=== PATIENT | male | born 1935 | race Caucasian/White ===

== ENCOUNTER 2017-07-30 12:24 | Outpatient (CLI) | payer MEDICARE, BC ==
--- NOTE | 2017-07-30 13:45 | RAD ---
TWO VIEW CHEST: Indication: Left chest pain, rib pain. FINDINGS: No evidence of a displaced left rib fracture. Cardiac silhouette is at upper limits of normal. No sig nificant vascular congestion or pleural effusion. There is prominent degenerative change of the imaged spine. IMPRESSION: 1. No displaced left rib fracture or discrete pneumothorax. POS: CET
== END 2017-07-30 12:25 | disposition home or self-care (01) ==
LOC: SCSRAD 12:24
PROVIDERS: ATTEND Physician Assistant
DX: R07.81 Pleurodynia (principal)
CPT/HCPCS: 71020

== ENCOUNTER 2017-11-11 12:59 | Outpatient (CLI) | payer MEDICARE, BC ==
--- NOTE | 2017-11-12 12:13 | PFT ---
PATIENT HISTORY: HEIGHT: 72IN WEIGHT:202 SMOKER: NO HOW LON YRS AGO PACKS PER DAY CIGARS PRODUCTIVE COUGH: LUNG DISEASE: PHYSICIAN INTERPRETATION FINAL REPORT: The FEV1 is 2.56 liters which 96% predicted, FVC 3.26 liters which 75% predicted. The FEV1/FVC ratio was increased. There is no improvement in FEV1 after bronchodilatation. The total lung capacity is 5.5 liters which is 81%. Residual volume is normal. DLCO could not be performed because of problems with the patient's performing the test. IMPRESSION: The spirometry is essentially normal. The lung capacities are trending towards mild restriction. Gas exchange could not be assessed on this study. Software Engineering Analyst: Rod Filler: MARK MCCOLLUM
== END 2017-11-11 13:00 | disposition home or self-care (01) ==
LOC: CP 12:59
PROVIDERS: ATTEND Internal Medicine
DX: R06.09 Other forms of dyspnea (principal)
CPT/HCPCS: 94060; 94727

== ENCOUNTER 2017-11-20 16:00 | Outpatient (CLI) | payer MEDICARE, BC | END 2017-11-20 16:01 | disposition home or self-care (01) | LOC: SLEEPLAB 16:00 | PROVIDERS: ATTEND Internal Medicine | DX: G47.33 Obstructive sleep apnea (adult) (pediatric) (principal); R53.83 Other fatigue; R06.83 Snoring; R35.1 Nocturia; G31.84 Mild cognitive impairment of uncertain or unknown etiology; I48.91 Unspecified atrial fibrillation; I11.0 Hypertensive heart disease with heart failure; I50.32 Chronic diastolic (congestive) heart failure | CPT/HCPCS: 95806 ==

== ENCOUNTER 2017-12-09 15:35 | Outpatient (CLI) | payer MEDICARE, BC ==
--- NOTE | 2017-12-09 16:41 | RAD ---
TWO VIEWS LUMBAR SPINE 12/09/17 HISTORY: Restless leg syndrome. Patient complains of right leg and calf pain for the past few months. FINDINGS: There are five nonribbearing lumbar type vertebral bodies. Multilevel osteophytes are present. Verteb ral body heights and intervertebral disc spaces are within normal limits. Mild facet degenerative radha nges seen in the lower lumbar spine. There is no fracture or subluxation. Vascular calcifications see n in the abdominal aorta. Surgical clips overlie the right upper quadrant. There is mild bilateral hi p osteoarthritis. IMPRESSION: Degenerative changes in the lumbar spine, but no fracture or subluxation is seen. POS: ELIEZER
== END 2017-12-09 15:36 | disposition home or self-care (01) ==
LOC: SCSRAD 15:35
PROVIDERS: ATTEND Psychiatry & Neurology Neurology
DX: G25.81 Restless legs syndrome (principal); M47.896 Other spondylosis, lumbar region
CPT/HCPCS: 72100

== ENCOUNTER 2017-12-17 20:30 | Outpatient (CLI) | payer MEDICARE, BC | END 2017-12-17 20:31 | disposition home or self-care (01) | LOC: SLEEPLAB 20:30 | PROVIDERS: ATTEND Internal Medicine | DX: G47.33 Obstructive sleep apnea (adult) (pediatric) (principal); R06.83 Snoring; R35.1 Nocturia | CPT/HCPCS: 95811 ==

== ENCOUNTER 2018-01-23 09:48 | Day surgery (SDC) | payer MEDICARE, BC ==
[2018-01-23 13:43] LABS: Calcium 8.5 mg/dL (7.8-10.44); Chloride 108 mmol/L (98-107); Potassium 4.1 mmol/L (3.5-5.1); Sodium 138 mmol/L (136-145)
[2018-01-23 13:44] LABS: Glucose 114 mg/dL (83-110)
[2018-01-23 13:45] LABS: Anion Gap 14 mmol/L (10-20); Carbon Dioxide 20 mmol/L (23-31)
[2018-01-23 13:47] LABS: Calc. Creatinine Clearance 0 mL/min (70-130); Estimated GFR-MDRD 79
[2018-01-23 13:48] LABS: BUN (Urea Nitrogen) 19 mg/dL (8.4-25.7)
--- NOTE | 2018-01-23 14:30 | ECHO ---
TRANSESOPHAGEAL ECHOCARDIOGRAM: DATE OF PROCEDURE: 01/23/18 INDICATION: This is an 82-year-old gentleman with paroxysmal atrial fibrillation. DESCRIPTION OF PROCEDURE: The patient was taken to the PACU. The patient was sedated by anesthesiology. A transesophageal probe was placed in the distal esophagus and stomach. Echocardiographic images were obtained. The transesophageal probe was removed. FINDINGS: 1. Normal left ventricular systolic function. 2. Biatrial enlargement. 3. Moderate mitral regurgitation. 4. Mild tricuspid regurgitation. 5. No thrombus is noted in the left atrium or left atrial appendage. 6. Atherosclerotic debris in the descending aorta. IMPRESSION: No formed thrombus in the left atrium or left atrial appendage.
--- NOTE | 2018-01-23 14:37 | OP ---
CARDIOLOGY PROCEDURE NOTE: Date: 01/23/18 PROCEDURE: Electrical cardioversion. DETAILS: The patient remained sedated after transesophageal echo revealed no evidence of intracardiac thrombus . With 200 joules of synchronized cardioversion, he returned to sinus rhythm and tolerated the proced ure well.
--- NOTE | 2018-01-23 15:56 | HP ---
HISTORY OF PRESENT ILLNESS: This is a pleasant 82-year-old white male with history of atrial arrhyth mias. He underwent pulmonary venous isolation ablation in 2011 and has been in normal sinus rhythm s mao that time until 01/13/2018. He felt rapid heartbeat went to the emergency room at [facility] and was found to be in atrial flutter. He was placed on Eliquis 5 b.i.d. and metop rolol was increased from 50 to 75 mg q.a.m. He was seen by Electrophysiology and felt that he should undergo MATT followed by electrical cardioversion. PHYSICAL EXAMINATION: VITAL SIGNS: Blood pressure 128/70, pulse of 80. HEENT: PERRL. CHEST: Clear. CARDIAC: S1 and S2 normal, without any S3 or S4, without murmurs. ABDOMEN: Normal bowel sounds. EXTREMITIES: Revealed trace pretibial edema. NEUROLOGIC: Grossly intact. IMPRESSION: Recurrence of atrial flutter, atypical. RECOMMENDATIONS: The patient will undergo electrical cardioversion. Risks of MATT and electrical car dioversion were discussed including , worse heart rhythm, asystole, teeth or esophageal damage, stroke, embolic event, etc. He understands and agrees to proceed.
== END 2018-01-23 14:43 | disposition home or self-care (01) ==
LOC: CCL 09:48
PROVIDERS: ATTEND Internal Medicine Cardiovascular Disease
DX: I48.4 Atypical atrial flutter (principal)
CPT/HCPCS: 36415; 80048; 92960; 93005; 93010; 93312

== ENCOUNTER 2020-02-04 06:30 | Outpatient (CLI) | payer MEDICARE, BC, OTHER ==
[2020-02-04 10:18] LABS: Hemoglobin 13.4 g/dL (14.0-18.0); Mean Corpuscular HGB CONC 34.2 g/dL (32.0-36.0); Mean Corpuscular Hemoglobin 31.2 pg (27.0-31.0); Mean Corpuscular Volume 91.4 fL (78.0-98.0); Mean Platelet Volume 8.7 fL (7.4-10.4); Platelet Count 131 thou/uL (130-400); RBC Distribution Width 13.1 % (11.5-14.5); Red Blood Cell (RBC) Count 4.31 mill/uL (4.70-6.10)
[2020-02-04 11:16] LABS: Bacteria/HPF None Seen HPF (None Seen); Bilirubin Negative (Negative); Blood, Urine Negative (Negative); Clarity Turbid (Clear); Glucose, Urine (Dipstick) 50 mg/dL (Negative); Leukocyte Negative Leu/uL (Negative); Nitrite Negative (Negative); Protein, Urine (Dipstick) Negative (Neg-Trace); RBC/HPF 0-3 HPF (0-3); Squamous Epithelial 0-3 HPF (0-3); Urobilinogen Normal mg/dL (Less than 2)
[2020-02-04 11:36] LABS: Anion Gap 11 mmol/L (10-20); BUN (Urea Nitrogen) 27 mg/dL (8.4-25.7); Calc. Creatinine Clearance 0 mL/min (70-130); Carbon Dioxide 28 mmol/L (23-31); Chloride 103 mmol/L (98-107); Estimated GFR-MDRD 55; Glucose 233 mg/dL (83-110); Sodium 138 mmol/L (136-145)
[2020-02-05 12:15] LABS: SARS-CoV-2 MS2 Positive; SARS-CoV-2 N Gene Negative; SARS-CoV-2 S Gene Negative; SARS-CoV-2 orf1ab Negative
--- NOTE | 2020-02-07 17:25 | EKG ---
Test Reason : Blood Pressure : / mmHG Vent. Rate : 080 BPM Atrial Rate : 080 BPM P-R Int : 162 ms QRS Dur : 082 ms QT Int : 394 ms P-R-T Axes : 052 -03 110 degrees QTc Int : 454 ms Normal sinus rhythm Nonspecific ST and T wave abnormality Abnormal ECG Confirmed by JACOB BENSON ([id number]) on 02/07/2020 5:25:47 PM Referred By: TRINITY Confirmed By:JACOB BENSON
== END 2020-02-04 06:31 | disposition home or self-care (01) ==
LOC: LABBT 06:30
PROVIDERS: ATTEND Urology
DX: Z01.818 Encounter for other preprocedural examination (principal); Z11.59 Encounter for screening for other viral diseases; N40.1 Benign prostatic hyperplasia with lower urinary tract symptoms
CPT/HCPCS: 80048; 81001; 85027; U0003; 87635; 93005; 93010

== ENCOUNTER 2020-02-08 08:48 | Observation (INO) | payer MEDICARE, BC ==
[2020-02-03 11:13] VITALS: BMI 25.7
[2020-02-08] MEDS ORDERED: Fentanyl 100 MCG/2 ML VIAL ONE (08:53)
[2020-02-08] MEDS ORDERED: Midazolam HCl 2 mg/2 ml Vial ONE (08:53)
[2020-02-08] MEDS ORDERED: Levofloxacin 500 mg/D5W 100 ml Premix Bag ONE (09:20)
[2020-02-08] MEDS ORDERED: Ondansetron PF 4 MG/2 ML Vial ONE (11:15)
[2020-02-08] MEDS ORDERED: PROPOFOL 200 MG/20 ML VIAL ONE (11:15)
[2020-02-08] MEDS ORDERED: Rocuronium Bromide 10 MG/ML (10ML VIAL) ONE (11:15)
[2020-02-08] MEDS ORDERED: EPHEDRINE 25 MG/5 ML SYRINGE ONE (11:15)
[2020-02-08] MEDS ORDERED: Lidocaine 1% PF 5 ML VIAL ONE (11:15)
[2020-02-08] MEDS ORDERED: Ondansetron HCl/PF 4 MG/2 ML Vial IVP PRN (11:41)
[2020-02-08] MEDS ORDERED: Promethazine HCl 25 MG/ML VIAL IM PRN (11:41)
[2020-02-08] MEDS ORDERED: Promethazine HCl 25 MG/ML VIAL SLOW IVP PRN (11:41)
[2020-02-08] MEDS ORDERED: hydrALAZINE 20 MG/ML VIAL SLOW IVP PRN (13:05)
[2020-02-08] MEDS ORDERED: Ketorolac Tromethamine 30 MG/ML VIAL IVP PRN (13:05)
[2020-02-08] MEDS ORDERED: HYDROcodone/Acetaminophen 5/325 mg Tablet PO PRN (13:05)
[2020-02-08] MEDS ORDERED: diphenhydrAMINE 50 MG/ML VIAL IVP PRN (13:05)
[2020-02-08] MEDS ORDERED: Acetaminophen 500 MG TAB PO PRN (13:05)
[2020-02-08] MEDS ORDERED: Zolpidem Tartrate 5 MG TAB PO PRN (13:05)
[2020-02-08] MEDS: Sodium Chloride 0.9% 1,000 ML IV SCH ×3 (15:31→20:28)
[2020-02-08] MEDS: Hyoscyamine Sulfate SL 0.125 mg Tablet SL SCH (17:39)
--- NOTE | 2020-02-08 18:53 | OP ---
DATE OF PROCEDURE: 02/08/2020 PREOPERATIVE DIAGNOSIS: Enlarged prostate with lower urinary tract symptoms, urinary retention. POSTOPERATIVE DIAGNOSIS: Enlarged prostate with lower urinary tract symptoms, urinary retention. PROCEDURE PERFORMED: Transurethral resection of prostate. ANESTHESIA: General. COMPLICATIONS: None. BLOOD LOSS: Minimal. SPECIMEN: Prostate chips. DESCRIPTION OF PROCEDURE: After informed consent, the patient was taken to the operating room, transferred to the table on his own power. Anesthesia was established. Time-out was performed showing the correct patient, site, and procedure. He was prepped and draped in the lithotomy position. I began by dilating the urethral meatus from [id number]. The rigid resectoscope then easily passed through the urethra noting normal course and caliber of the urethra and entered into the prostate noting large coapting lateral lobes and a very large median lobe. The bladder was then entered and systematically examined noting no mucosal abnormalities. Both ureters were normal in appearance. I began by resecting the median lobe from the bladder neck back to the verumontanum. I then resected the left lobe from about 1 o'clock down to midline and then the right lobe from 11 o'clock down to midline. Finally, anterior resecting tissue was removed. Total resection time was about 50 minutes. The [employer] evacuator was then used to retrieve all prostate chips, which were passed off as specimen. Meticulous hemostasis was achieved. Both ureters were re-examined and noted to be uninvolved with resection. The scope was then carefully withdrawn and a 22-[place] 3-way catheter was placed with 30 mL instilled in the balloon. Continuous bladder irrigation was connected as well as bag drainage. A StatLock device was deployed. He was then awoken from anesthesia and transferred back to his hospital bed and taken to PACU in stable condition, where he will be admitted overnight. Job ID: [id number]
[2020-02-08] MEDS: Docusate 100 MG CAP PO SCH (20:29)
[2020-02-08] MEDS ORDERED: Rosuvastatin 5 MG TAB PO SCH (21:00)
[2020-02-08] MEDS ORDERED: Pramipexole Di-HCl 1 MG TAB PO SCH (21:00)
[2020-02-09] MEDS: Hyoscyamine Sulfate SL 0.125 mg Tablet SL SCH ×2 (00:14→05:26)
[2020-02-09 07:55] VITALS: BP 121/74; TEMP 97.7
[2020-02-09] MEDS ORDERED: metFORMIN XR 500 MG TAB PO SCH (08:00)
[2020-02-09] MEDS ORDERED: Furosemide 20 MG TAB PO SCH (09:00)
[2020-02-09] MEDS: Docusate 100 MG CAP PO SCH (09:00)
--- NOTE | 2020-02-10 03:11 | DIS ---
DATE OF ADMISSION: 02/08/2020 DATE OF DISCHARGE: 02/09/2020 CHIEF COMPLAINT: Urinary retention and lower urinary tract symptoms due to enlarged prostate. DISCHARGE DIAGNOSES: Enlarged prostate with lower urinary tract symptoms and urinary retention. HOSPITAL COURSE: The patient underwent an uncomplicated bipolar transurethral resection of the prostate. He was maintained on continuous bladder irrigation overnight with urine clear off CBI the next morning. He has having no discomfort and tolerating diet. He was deemed stable for discharge home at that point. DISCHARGE MEDICATIONS: Include; 1. Levaquin. 2. Oxybutynin. 3. Tramadol. PHYSICAL EXAMINATION: Discharge exam; GENERAL: No acute distress, conversant, unlabored breathing. CHEST: Symmetric chest expansion. HEART: Regular rate and rhythm. ABDOMEN: Soft, nontender, and nondistended. No suprapubic tenderness. No flank tenderness. Ching catheter in good position, draining clear urine off CBI. SKIN: Warm and dry. FOLLOWUP PLAN: Next Friday void trial. Job ID: [id number]
== END 2020-02-09 10:19 | disposition home or self-care (01) ==
LOC: SDC 08:48 → SURG A 10:24
PROVIDERS: ADMIT Urology; ATTEND Urology
PROC: 0VB08ZZ Excision of Prostate, Via Natural or Artificial Opening Endoscopic (ICD-10-PCS; principal; 2020-02-08)
DX: N40.1 Benign prostatic hyperplasia with lower urinary tract symptoms (principal); R33.8 Other retention of urine; E78.5 Hyperlipidemia, unspecified; M17.9 Osteoarthritis of knee, unspecified; Z79.899 Other long term (current) drug therapy
CPT/HCPCS: 52601; 82962; 88305; 96360; 96361 ×2; G0378 ×2; 36416; J1956; J2001; J2250; J2405; J2704; J3010

== ENCOUNTER 2020-05-30 14:15 | Inpatient (IN) | payer MEDICARE, BC, OTHER ==
[2020-05-30] MEDS ORDERED: Diltiazem 125 MG/25 ML ONE (14:26)
[2020-05-30] MEDS ORDERED: Magnesium 2 GM/50 ML BAG (IN WATER) ONE (14:27)
[2020-05-30] MEDS ORDERED: Aspirin Chewable 81 MG TAB ONE (14:27)
[2020-05-30 15:18] LABS: #Eosinphils 0.4 thou/uL (0.0-0.7); #Lymphocytes 0.8 thou/uL (1.20-3.40); #Monocytes 0.6 thou/uL (0.11-0.59); #Neutrophils 5.8 thou/uL (1.40-6.50); %Basophils 0.2 % (0.0-1.0); %Eosinophils 5.2 % (0.0-10.0); %Lymphocytes 10.6 % (21.0-51.0); %Monocytes 7.6 % (0.0-10.0); %Neutrophils 76.4 % (42.0-75.0); Hemoglobin 13.8 g/dL (14.0-18.0); Mean Corpuscular HGB CONC 34.4 g/dL (32.0-36.0); Mean Corpuscular Volume 90.1 fL (78.0-98.0); Mean Platelet Volume 7.3 fL (7.4-10.4); Platelet Count 220 thou/uL (130-400); RBC Distribution Width 13.4 % (11.5-14.5); Red Blood Cell (RBC) Count 4.47 mill/uL (4.70-6.10); White Blood Cell (WBC) Count 7.6 thou/uL (4.8-10.8)
--- NOTE | 2020-05-30 15:21 | RAD ---
XR Chest 1 View Portable HISTORY: Chest pain COMPARISON: 02/02/2020 FINDINGS: The heart size is normal. The lungs are well expanded without focal areas of consolidation, pneumothorax or pleural effusions. IMPRESSION: No radiographic evidence of acute cardiopulmonary process.
[2020-05-30] MEDS ORDERED: Diltiazem HCl 125 MG, Admixture Fee 1 EACH in Sodium Chloride 0.9% 100 ML IVPB SCH (15:30)
[2020-05-30 15:42] LABS: ALT (SGPT) 31 U/L (8-55); AST (SGOT) 23 U/L (5-34); Albumin 4.2 g/dL (3.4-4.8); Alkaline Phosphatase 94 U/L (40-110); Anion Gap 14 mmol/L (10-20); BUN (Urea Nitrogen) 23 mg/dL (8.4-25.7); CK (CPK) 268 U/L (30-200); Calc. Creatinine Clearance 0 mL/min (70-130); Calcium 8.4 mg/dL (7.8-10.44); Carbon Dioxide 26 mmol/L (23-31); Chloride 105 mmol/L (98-107); Estimated GFR-MDRD 64; Globulin 2.2 g/dL (2.4-3.5); Glucose 152 mg/dL (83-110); Lipase 10 U/L (8-78); Potassium 3.7 mmol/L (3.5-5.1); Protein, Total 6.4 g/dL (5.8-8.1); Sodium 141 mmol/L (136-145)
[2020-05-30] MEDS ORDERED: Dextrose 50% Abboject 50 ML SYRINGE SLOW IVP PRN (16:20)
[2020-05-30] MEDS ORDERED: Dextrose 5% in Water 1,000 ML IV PRN (16:20)
[2020-05-30] MEDS ORDERED: Acetaminophen 325 MG TAB PO PRN (16:20)
[2020-05-30] MEDS ORDERED: Bisacodyl 10 MG SUPP PR PRN (16:20)
[2020-05-30] MEDS ORDERED: Calcium Carbonate 500 MG ChewTAB PO PRN (16:20)
[2020-05-30] MEDS ORDERED: Guaifenesin DM 100-10/5 ML UDCUP PO PRN (16:20)
[2020-05-30] MEDS ORDERED: HumaLOG 300 UNITS/3 ML VIAL SC PRN ×2 (16:20)
[2020-05-30] MEDS ORDERED: Senokot S 8.6-50 MG TAB PO PRN (16:20)
[2020-05-30] MEDS ORDERED: Ondansetron PF 4 MG/2 ML Vial IVP PRN (16:20)
--- NOTE | 2020-05-30 17:07 | HP ---
REASON FOR ADMISSION: Atrial flutter. HISTORY OF PRESENTING ILLNESS: The patient gives history of falling nearly 3 times on an even surface, which he normally does not. He felt weaker as the day went by. He finally called his primary care physician, Dr. Von Hicks. They gave him an appointment around 1:30 p.m. On arrival, the patient was found to be in atrial fibrillation with RVR with rates going up to 154. EMS was summoned and the patient was transferred to the emergency room here. No complaints of fever, cough, or expectoration. No complaints of chest pain. The patient does not have any palpitations as such. He lives with his . He has had prior history of chronic atrial fibrillation and had gone to [facility] for ablation in the past, which was more than 10 years that he can recall. No history of heart disease as far as he knows. PAST MEDICAL AND SURGICAL HISTORY: History of paroxysmal atrial fibrillation with prior ablation done in [facility] in [place], hypertension, diabetes mellitus type 2, benign prostatic hypertrophy, TURP done on 02/08/[address] Trejo. He had a cardioversion done by Dr. Hagen on 01/23/2018 with transesophageal echo. Per prior records, the patient has had pulmonary venous isolation with ablation done in 2011; prior colonoscopies in 1993, 1995, 1997; dyslipidemia; chronic lumbar disk disease. He has had recent varicose vein ablation done by Dr. Hagen, restless legs syndrome, osteoarthritis, cholecystectomy in 1994, right shoulder arthroscopic repair. CURRENT MEDICATIONS: 1. Toprol-XL 75 mg p.o. daily. 2. CoQ10 of 100 mg capsule daily. 3. Crestor 5 mg daily. 4. Mirapex extended release 1.5 mg daily. 5. Eliquis 5 mg twice daily. 6. Metformin extended release 750 mg daily. 7. Lasix 20 mg daily. 8. Ultram p.r.n. for pain. 9. Flomax 0.4 mg p.o. daily. 10. Celebrex 100 mg daily. ALLERGIES: SULFA, SINEMET, NIASPAN, CRESTOR AT HIGHER DOSES, GABAPENTIN, ATIVAN. PERSONAL HISTORY: Does not abuse alcohol or drugs. No history of smoking. FAMILY HISTORY: Mother in her 90s from natural causes. Father in his 40s, he of alcohol-related complications, was a heavy alcohol user. The patient lives with his , has 2 sons. CODE STATUS: Full. 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 REVIEW OF SYSTEMS: CONSTITUTIONAL: Negative for weight loss or gain, ability to conduct usual activities. SKIN: Negative for rash, itching. EYES: Negative for double vision, pain. ENT/MOUTH: Negative for nose bleeding, neck stiffness, pain, tenderness. CARDIOVASCULAR: Negative for palpitations, dyspnea on exertion, orthopnea. RESPIRATORY: Negative for shortness of breath, wheezing, cough, hemoptysis, fever or night sweats. GASTROINTESTINAL: Negative for poor appetite, abdominal pain, heartburn, nausea, vomiting, constipation, or diarrhea. GENITOURINARY: Negative for urgency, frequency, dysuria, nocturia. MUSCULOSKELETAL: Negative for pain, swelling. NEUROLOGIC/PSYCHIATRIC: Negative for anxiety, depression. ALLERGY/IMMUNOLOGIC: Negative for skin rash, bleeding tendency. PHYSICAL EXAMINATION: GENERAL: The patient is an 84-year-old male who is currently not in any acute distress. VITAL SIGNS: Blood pressure 138/106, pulse 150 per minute, respiratory rate 22 per minute, temperature 98 degrees Fahrenheit, saturating 95% on room air. NECK: Supple. No elevated JVD. HEENT: Eyes; extraocular muscles are intact. Pupils reacting to light. Oral cavity, mucous membranes are moist. No exudates or congestion. CARDIOVASCULAR: S1 and S2 heard. Regular rhythm. RESPIRATORY: Air entry 1+ bilateral. Scattered rhonchi plus no rales or wheezes. ABDOMEN: Soft. Bowel sounds heard. No tenderness, rigidity, or guarding. EXTREMITIES: No peripheral edema or calf tenderness. Peripheral pulses are 1+ bilateral. No ischemic ulcers or gangrene. CENTRAL NERVOUS SYSTEM: No gross focal deficits noted. The patient is a bit anxious, otherwise no hallucinations or delusions. LABORATORY DATA: White count of 7.6, hemoglobin and hematocrit 13 and 40, platelet count is 220, MCV is 90 with 76% neutrophils. BUN 23, creatinine 1.0, serum bicarb 26, serum glucose 152. CK level is 268. Liver enzymes within normal limits. BNP is 223. Albumin is 4.2. IMAGING STUDIES: Chest x-ray done shows no acute cardiopulmonary process. Three EKGs done in the ER, the initial one shows atrial fibrillation at 154 beats per minute on arrival. Subsequent two EKGs show atrial flutter with the rate in the 70s. CLINICAL IMPRESSION AND PLAN: The patient has had 3 falls on an even surface at home with him being in atrial flutter. He has had prior history of atrial fibrillation with prior ablation and cardioversions done. We will obtain Cardiology consultation with Dr. Hagen. We will also obtain a CT brain without contrast for completion sake in view of falls. His atrial flutter is rate controlled at present with 2:1. We will continue his Toprol-XL 75 mg as before daily and all the other home medications as before. We will keep him n.p.o. after midnight. We will hold his Eliquis for now in view of possible procedures in the morning. Likely, the patient might need a cardioversion. He has also had chronic leg pains and has seen Dr. Mayes and has had two pain relieving shots done. The patient also has history of sleep apnea and he does not like the face mask with CPAP and is noncompliant. He has not tried nasal pillows yet and likely will go to see his primary care physician, Dr. Von Hicks to currency exchange specialist per . Job ID: [id number]
--- NOTE | 2020-05-30 17:22 | CT ---
Exam: Head CT without contrast HISTORY: Multiple recurrent falls COMPARISON: 04/03/2016 FINDINGS: Hemorrhage: No intraparenchymal hemorrhage or extra-axial hematoma. Brain parenchyma: Cortical nj-white matter differentiation is preserved. No mass effect or midline shift. Basilar cisterns are patent. Ventricular system: Ventricles and sulci are patent and symmetric. Calvarium: Intact. Sinuses and mastoid air cells: Adequate aeration. IMPRESSION: No acute intracranial process.
[2020-05-30 19:40] LABS: Troponin I 0.038 ng/mL (< 0.028)
[2020-05-30 20:50] VITALS: BMI 25.4
[2020-05-30] MEDS: Tamsulosin HCl 0.4 MG CAP PO SCH (21:19)
[2020-05-30] MEDS: Pramipexole Di-HCl 1 MG TAB PO SCH (21:19)
[2020-05-31] MEDS ORDERED: Sodium Chloride 0.9% 250 ML IV SCH (04:30)
[2020-05-31] MEDS ORDERED: Diltiazem HCl 125 MG, Admixture Fee 1 EACH in Sodium Chloride 0.9% 100 ML IVPB SCH (05:00)
[2020-05-31] MEDS ORDERED: Metoprolol Tartrate 5 MG/5 ML VIAL IVP PRN (08:13)
[2020-05-31] MEDS ORDERED: Furosemide 20 MG TAB PO SCH (09:00)
[2020-05-31] MEDS ORDERED: CeleCOXIB 100 MG CAP PO SCH (09:00)
[2020-05-31] MEDS ORDERED: Ubidecarenone 50 MG CAP PO SCH (09:00)
[2020-05-31] MEDS ORDERED: Rosuvastatin 5 MG TAB PO SCH (09:00)
[2020-05-31] MEDS ORDERED: Digoxin 0.5 MG/2 ML AMP SLOW IVP SCH (09:15)
[2020-05-31] MEDS ORDERED: Sodium Chloride 0.9% 1,000 ML IV SCH (09:30)
[2020-05-31] MEDS ORDERED: Apixaban 5 MG TAB PO SCH ×2 (09:30→21:00)
[2020-05-31] MEDS ORDERED: PROPOFOL 20 ML ONE (10:31)
[2020-05-31] MEDS ORDERED: Lidocaine 1% PF 5 ML VIAL ONE (10:31)
[2020-05-31 11:57] LABS: SARS-CoV-2 MS2 Positive; SARS-CoV-2 N Gene Negative; SARS-CoV-2 S Gene Negative; SARS-CoV-2 by NAA Not Detected (NotDetected); SARS-CoV-2 orf1ab Negative
--- NOTE | 2020-05-31 12:44 | PDOC.HOSPP ---
- Subjective Encounter Date: 05/31/20 Encounter Time: 09:45 Subjective: is sleepy this am at bedside rvr from 4 am into 150's despite being on cardizem 2.5mg/hr no sob - Objective Vital Signs & Weight: Vital Signs (12 hours) Temp Pulse Resp BP Pulse Ox 05/31/20 09:36 152 H 05/31/20 08:00 97.9 F 153 H 16 104/65 99 05/31/20 03:23 97.1 F L 80 18 105/67 99 Weight Weight 187 lb 11.2 oz Result Diagrams: 05/30/20 15:08 05/30/20 15:08 Additional Labs: Accuchecks 05/31/20 07:17 POC Glucose 182 H Hospitalist ROS - Medication Medications: Active Medications Generic Name Dose Route Start Last Admin Trade Name Freq PRN Reason Stop Dose Admin Celecoxib 100 mg 05/31/20 09:00 05/31/20 09:46 Celecoxib 100 Mg Cap PO 100 mg DAILY EMILIE Administration Coenzyme Q10 100 mg 05/31/20 09:00 05/31/20 09:55 Ubidecarenone 50 Mg Cap PO Not Given DAILY EMILIE Furosemide 20 mg 05/31/20 09:00 05/31/20 09:54 Furosemide 20 Mg Tab PO Not Given DAILY EMILIE Sodium Chloride 1,000 mls @ 75 mls/hr 05/31/20 09:30 05/31/20 09:54 Normal Saline 0.9% IV 05/31/20 15:00 1,000 mls .[id number] EMILIE Administration Metoprolol Succinate 75 mg 05/31/20 12:15 05/31/20 12:22 Metoprolol Succinate Xl 25 Mg Tab PO 05/31/20 15:00 75 mg NOW EMILIE Administration Pramipexole Dihydrochloride 1.5 mg 05/30/20 21:00 05/30/20 21:19 Pramipexole Di-Hcl 1 Mg Tab PO 1.5 mg HS EMILIE Administration Rosuvastatin Calcium 5 mg 05/31/20 09:00 05/31/20 09:46 Rosuvastatin 5 Mg Tab PO 5 mg DAILY EMILIE Administration Tamsulosin HCl 0.4 mg 05/30/20 21:00 05/30/20 21:19 Tamsulosin Hcl 0.4 Mg Cap PO 0.4 mg HS EMILIE Administration - Exam General Appearance: awake alert Eye: PERRL, anicteric sclera ENT: no oropharyngeal lesions, moist mucosa Neck: supple, no JVD Heart: no murmur, irregular Respiratory: no wheezes, no rales, no ronchi Gastrointestinal: soft, non-tender, non-distended, normal bowel sounds Extremities: no cyanosis, no edema Neurological: cranial nerve grossly intact, no focal deficits Hosp A/P (1) Atrial flutter Code(s): I48.92 - UNSPECIFIED ATRIAL FLUTTER Status: Acute (2) Paroxysmal A-fib Code(s): I48.0 - PAROXYSMAL ATRIAL FIBRILLATION Status: Chronic (3) HTN (hypertension) Code(s): I10 - ESSENTIAL (PRIMARY) HYPERTENSION Status: Chronic Qualifiers: Hypertension type: essential hypertension Qualified Code(s): I10 - Essential (primary) hypertension (4) BPH (benign prostatic hyperplasia) Code(s): N40.0 - BENIGN PROSTATIC HYPERPLASIA WITHOUT LOWER URINRY TRACT SYMP Status: Chronic Qualifiers: Lower urinary tract symptom presence: symptoms present (5) Dyslipidemia Code(s): E78.5 - HYPERLIPIDEMIA, UNSPECIFIED Status: Chronic (6) NE (obstructive sleep apnea) Code(s): G47.33 - OBSTRUCTIVE SLEEP APNEA (ADULT) (PEDIATRIC) Status: Chronic (7) Dementia Code(s): F03.90 - UNSPECIFIED DEMENTIA WITHOUT BEHAVIORAL DISTURBANCE Status: Suspected Qualifiers: Dementia behavioral disturbance: without behavioral disturbance - Plan s/p successfull cardioversion this am continue eliquis, toprol xl, lasix, flomax and crestor hemostable to ambulate with PT/OT likely will need HH with PT and nursing on dc
--- NOTE | 2020-05-31 15:33 | CON ---
DATE OF CONSULTATION: HISTORY OF PRESENT ILLNESS: Raffi Wheeler is an 84-year-old white male, whom I followed for 33 years. He was initially seen in April 1987 and had some chest discomfort, lasted for several hours. At that time, he had nonspecific lateral T-wave changes. He exercised for 9 minutes on treadmill and had no chest pain and the treadmill was negative for ischemia. He was seen again in July 1993 for an insurance physical and again was found to have the T-wave changes. He underwent treadmill testing without evidence of ischemia. He has moderate mitral regurgitation and was followed intermittently with echocardiograms. In March 2011, he was seen for some chest discomfort that occurred at rest, lasting 3 or 4 minutes, and increased shortness of breath. He underwent Cardiolite treadmill testing, which revealed no evidence of ischemia. He continued to have the episodes of exertional shortness of breath and chest tightness. One episode occurred after he mowed his lawn, lasting 20 or 30 minutes. He began to have more frequent episodes and went to the emergency room and was found to be in atrial fibrillation with a rate of 99 per minute, nonspecific ST and T- wave changes. He was started on anticoagulation and converted to sinus rhythm. He was placed on Multaq 400 mg b.i.d. as well as Pradaxa for anticoagulation. He continued to have episodes of atrial fibrillation even on Multaq, and ultimately was sent to [facility] for radiofrequency ablation. This was performed in July 2012. He returned to [facility] in August 2012 with recurrence of atrial fibrillation after ablation. He then underwent cardioversion, back to sinus rhythm. He maintained sinus rhythm until January 13, 2018, when he felt a rapid heartbeat, he went to [facility], was found to be in atrial flutter. He was placed on Eliquis 5 mg b.i.d., metoprolol was increased for rate control, and was seen by Electrophysiology. He then underwent transesophageal echo here at [facility], which revealed biatrial enlargement, moderate mitral regurgitation, mild tricuspid regurgitation, no thrombus. Then with 200 joules, he returned to sinus rhythm. As best we know, he has maintained sinus rhythm since that time, although he continues to take Eliquis. He also has undergone radiofrequency ablation of the right small saphenous vein and he has had chronic pain after that and is being seen by Dr. Mayes. Other pertinent studies are, in January 2019, he underwent echocardiography, which revealed a small circumferential pericardial effusion, which has been present since 2011. Ejection fraction was 60% to 65% with mild left atrial enlargement, mild mitral regurgitation, mild tricuspid regurgitation, and mild pulmonic regurgitation. A cardiac PET scan was performed in December 2019, for evaluation of his exertional dyspnea. This revealed the study to be normal. He does complain of exertional shortness of breath and has an FEV1 of 75%. On May 29, his stated that he was just somewhat more uneasy and agitated. This continued until May 30 and he ultimately went to see his primary care physician, Dr. Von Hicks. He was found to be tachycardic and was sent to the emergency room. He was in atrial flutter with rate in the 150s. With intravenous digoxin, he did briefly block down and he had typical flutter waves. He denies any chest discomfort, shortness of breath, or palpitations with this. PAST MEDICAL HISTORY: Hypertension, hypercholesterolemia, diastolic dysfunction, diabetes atrial fibrillation and atrial flutter. MEDICATIONS: 1. Metformin 750 daily. 2. Pramipexole 1.5 mg daily. 3. CoQ10, 100 mg daily. 4. Celebrex 200 mg daily. 5. Eliquis 5 mg b.i.d. 6. Tramadol p.r.n. 7. Metoprolol ER 75 mg (1-1/2 of a 50 mg) daily. 8. Furosemide 20 mg daily. 9. Rosuvastatin 5 mg daily. ALLERGIES: ALPRAZOLAM, AMITRIPTYLINE, CARBIDOPA, FINASTERIDE, GABAPENTIN, LEVODOPA, NIACIN, AND SULFA. OPERATIONS: Radiofrequency ablation of atrial fibrillation in July 2012. He also has undergone radiofrequency ablation of his right small saphenous vein. Prostatectomy in November 2019. Laparoscopic cholecystectomy and right shoulder surgery. SOCIAL HISTORY: He is a former smoker. FAMILY HISTORY: Father of myocardial infarction at age 73. REVIEW OF SYSTEMS: A 10-point review of systems is otherwise unremarkable. PHYSICAL EXAMINATION: VITAL SIGNS: Blood pressure 105/67, pulse 152 and regular. HEENT: PERRL. NECK: Supple. CHEST: Clear. CARDIAC: S1 and S2 are normal without any S3, S4, or murmurs. Carotid upstrokes normal without bruits. ABDOMEN: Normal bowel sounds without tenderness or organomegaly. EXTREMITIES: Revealed no clubbing, cyanosis, or edema. NEUROLOGIC: Grossly intact except for his mild dementia and difficulty in answering questions. SKIN: Warm and dry. LABORATORY DATA: EKG reveals atrial flutter with a rate of [address] and T-wave changes. Hemoglobin 13.8, hematocrit 40.3, white count 7600, platelets 220,000. Sodium 140, potassium 3.7, chloride 105, carbon dioxide 26, BUN 23, creatinine 1.09, glucose 152. Troponin-I 0.038. BNP 223.6. IMPRESSION: 1. Atrial flutter with 2:1 block. After a dose of digoxin 0.5 mg IV, he blocked down and had typical flutter waves. 2. History of atrial fibrillation with failing Multaq and then undergoing ablation in July 2012. One month later, he had recurrence of atrial fibrillation, underwent electrical cardioversion. This was in August 2012. He did well until January of 2018, when he had recurrence of atypical atrial flutter and underwent electrical cardioversion by me. He is in normal sinus rhythm as best we know since that time. 3. Hypertension. 4. Diabetes. 5. Hypercholesterolemia. 6. Former smoker. 7. Positive family history. 8. Normal PET scan in December 2019. PLAN: I confirmed with the that he had been taking Eliquis 5 mg b.i.d. and he has not run out of this medication. Therefore, it is recommended he undergo electrical cardioversion. Risks of this were discussed with the patient including , worse heart rhythm, stroke, embolic event, etc. He understands and is agreeable to proceed. Job ID: [id number] [facility]
[2020-05-31] MEDS ORDERED: Tamsulosin HCl 0.4 MG CAP PO SCH (21:00)
[2020-05-31] MEDS ORDERED: Pramipexole Di-HCl 1 MG TAB PO SCH (21:00)
[2020-05-31] MEDS ORDERED: Dextrose 5% in Water 1,000 ML IV PRN (21:04)
[2020-05-31] MEDS ORDERED: Dextrose 50% Abboject 50 ML SYRINGE SLOW IVP PRN (21:04)
[2020-05-31] MEDS ORDERED: Calcium Carbonate 500 MG ChewTAB PO PRN (21:05)
[2020-05-31] MEDS ORDERED: Bisacodyl 10 MG SUPP PR PRN (21:05)
[2020-05-31] MEDS: Pramipexole Di-HCl 1 MG TAB PO SCH (23:22)
[2020-05-31] MEDS: Tamsulosin HCl 0.4 MG CAP PO SCH (23:22)
--- NOTE | 2020-06-01 07:12 | EKG ---
Test Reason : Blood Pressure : / mmHG Vent. Rate : 153 BPM Atrial Rate : 306 BPM P-R Int : 000 ms QRS Dur : 088 ms QT Int : 324 ms P-R-T Axes : 270 -19 155 degrees QTc Int : 517 ms Regular narrow complex tachycardia without well defined P waves Septal infarct , age undetermined Abnormal ECG When compared with ECG of 30-MAY-2020 15:39, (Unconfirmed) Significant changes have occurred Confirmed by DR. Wilmar NETTLES ([id number]) on 06/01/2020 7:12:29 AM Referred By: DORCAS Confirmed By:DR. Wilmar NETTLES
--- NOTE | 2020-06-01 07:18 | EKG ---
Test Reason : POST CARDIOVERSION Blood Pressure : / mmHG Vent. Rate : 088 BPM Atrial Rate : 088 BPM P-R Int : 154 ms QRS Dur : 078 ms QT Int : 368 ms P-R-T Axes : 050 -12 155 degrees QTc Int : 445 ms Sinus rhythm with Premature atrial complexes Inferior infarct (cited on or before 30-MAY-2020) T wave abnormality, consider anterolateral ischemia Abnormal ECG When compared with ECG of 30-MAY-2020 15:39, (Unconfirmed) Significant changes have occurred Confirmed by DR. Wilmar NETTLES ([id number]) on 06/01/2020 7:17:53 AM Referred By: KATIE Confirmed By:DR. Wilmar NETTLES
[2020-06-01] MEDS ORDERED: Rosuvastatin 5 MG TAB PO SCH (09:00)
[2020-06-01] MEDS ORDERED: Furosemide 20 MG TAB PO SCH (09:00)
[2020-06-01] MEDS ORDERED: CeleCOXIB 100 MG CAP PO SCH (09:00)
[2020-06-01] MEDS ORDERED: Apixaban 5 MG TAB PO SCH (09:00)
[2020-06-01] MEDS ORDERED: Ubidecarenone 50 MG CAP PO SCH (09:00)
[2020-06-01 11:26] LABS: #Eosinphils 0.4 thou/uL (0.0-0.7); #Lymphocytes 0.5 thou/uL (1.20-3.40); #Monocytes 0.3 thou/uL (0.11-0.59); #Neutrophils 4.1 thou/uL (1.40-6.50); %Basophils 0.2 % (0.0-1.0); %Eosinophils 7.2 % (0.0-10.0); %Lymphocytes 9.4 % (21.0-51.0); %Monocytes 6.1 % (0.0-10.0); %Neutrophils 77.1 % (42.0-75.0); Hemoglobin 11.7 g/dL (14.0-18.0); Mean Corpuscular HGB CONC 32.8 g/dL (32.0-36.0); Mean Corpuscular Hemoglobin 30.2 pg (27.0-31.0); Mean Platelet Volume 7.3 fL (7.4-10.4); Platelet Count 190 thou/uL (130-400); RBC Distribution Width 13.6 % (11.5-14.5); Red Blood Cell (RBC) Count 3.87 mill/uL (4.70-6.10); White Blood Cell (WBC) Count 5.3 thou/uL (4.8-10.8)
[2020-06-01 12:09] LABS: Anion Gap 12 mmol/L (10-20); BUN (Urea Nitrogen) 22 mg/dL (8.4-25.7); Calc. Creatinine Clearance 76 mL/min (70-130); Calcium 7.8 mg/dL (7.8-10.44); Carbon Dioxide 23 mmol/L (23-31); Chloride 105 mmol/L (98-107); Estimated GFR-MDRD 84; Glucose 156 mg/dL (83-110); Potassium 3.6 mmol/L (3.5-5.1); Sodium 136 mmol/L (136-145)
[2020-06-01 12:30] VITALS: BP 113/60; TEMP 98
--- NOTE | 2020-06-01 16:00 | CCLSPC ---
PROCEDURE: Electrocardioversion. The patient was sedated by Anesthesia. With 50 joules of synchronized energy, he returned to sinus rhythm. Job ID: [id number]
[2020-06-01] MEDS ORDERED: Pramipexole Di-HCl 1 MG TAB PO SCH (21:00)
--- NOTE | 2020-06-02 01:01 | DIS ---
DATE OF ADMISSION: 05/30/2020 DATE OF DISCHARGE: 06/01/2020 DISCHARGE DIAGNOSES: The following; 1. Atrial flutter. 2. Paroxysmal atrial fibrillation. 3. Hypertension. 4. BPH. 5. Dyslipidemia. 6. Obstructive sleep apnea. 7. Dementia. HOSPITAL COURSE: The patient is an 84-year-old man who initially presented to the hospital on the with Aflutter. He actually went to his primary care doctor because he felt weak and was noted to be in Aflutter. He was sent here to the hospital. The patient at that time was seen by Cardiology, and he underwent a cardioversion on 05/31. His anticoagulation was continued. The patient was okay to be discharged home today. HOME MEDICATIONS: Will be the following; 1. Pramipexole 1.5 at bedtime. 2. Metformin 750 daily. 3. Rosuvastatin 5 mg daily. 4. Metoprolol 50 mg daily. 5. Eliquis 5 mg twice daily. 6. Lasix 20 mg daily. 7. Celecoxib 100 mg daily. PHYSICAL EXAMINATION: VITAL SIGNS: On discharge, temperature 98.7, 74, 15, 96% on room air, and 132/75. GENERAL: He is awake, alert, and oriented x3. Does not appear in any distress. CARDIOVASCULAR: S1 and S2 present. No murmurs, rubs, gallops. ABDOMEN: Soft and nontender. Bowel sounds are present x2. PLAN: Again, he will be discharged home. He will follow up with his primary and Cardiology. Job ID: [id number]
--- NOTE | 2020-06-10 13:02 | EKG ---
Test Reason : Blood Pressure : / mmHG Vent. Rate : 078 BPM Atrial Rate : 078 BPM P-R Int : 150 ms QRS Dur : 080 ms QT Int : 384 ms P-R-T Axes : 077 -11 111 degrees QTc Int : 437 ms Normal sinus rhythm Left ventricular hypertrophy with repolarization abnormality Inferior infarct , age undetermined Abnormal ECG Confirmed by JONH SIERRA, BOBBY ([id number]), newspaper copy editor JOSE DILL ([id number]) on 06/10/2020 1:01:27 PM Referred By: Confirmed By:BOBBY BORJA MD
== END 2020-06-01 12:26 | disposition home or self-care (01) | DRG 310 ==
LOC: ERS 14:15 → 2NO 16:09 → ERS 18:00
PROVIDERS: ADMIT Internal Medicine; ATTEND Internal Medicine
PROC: 5A2204Z Restoration of Cardiac Rhythm, Single (ICD-10-PCS; principal; 2020-05-31)
DX: I48.92 Unspecified atrial flutter (principal); I48.0 Paroxysmal atrial fibrillation; N40.0 Benign prostatic hyperplasia without lower urinary tract symptoms; I10 Essential (primary) hypertension; E11.9 Type 2 diabetes mellitus without complications; E78.5 Hyperlipidemia, unspecified; G25.81 Restless legs syndrome; M19.90 Unspecified osteoarthritis, unspecified site; E78.00 Pure hypercholesterolemia, unspecified; F03.90 Unspecified dementia, unspecified severity, without behavioral disturbance, psychotic disturbance, mood disturbance, and anxiety; Z90.49 Acquired absence of other specified parts of digestive tract; Z88.8 Allergy status to other drugs, medicaments and biological substances; Z88.2 Allergy status to sulfonamides; Z79.84 Long term (current) use of oral hypoglycemic drugs; Z79.02 Long term (current) use of antithrombotics/antiplatelets; Z79.899 Other long term (current) drug therapy; Z88.1 Allergy status to other antibiotic agents; Z87.891 Personal history of nicotine dependence
CPT/HCPCS: 36415; 36416; 70450; 71045; 80048; 80053; 82550; 83690; 83880; 84484; 85025; 87635; 92960; 93005; 93010; 96365; 96366; 96375; J1160; J2704; J3475; J3490; U0003

== ENCOUNTER 2020-06-03 16:54 | Emergency (ER) | payer MEDICARE, BC ==
[2020-06-03] MEDS ORDERED: Diltiazem 125 MG/25 ML ONE (17:18)
[2020-06-03 17:25] LABS: #Basophils 0.1 thou/uL (0.0-0.2); #Eosinphils 0.5 thou/uL (0.0-0.7); #Lymphocytes 0.9 thou/uL (1.20-3.40); #Monocytes 0.5 thou/uL (0.11-0.59); #Neutrophils 5.3 thou/uL (1.40-6.50); %Basophils 0.7 % (0.0-1.0); %Eosinophils 7.5 % (0.0-10.0); %Lymphocytes 11.9 % (21.0-51.0); %Monocytes 6.5 % (0.0-10.0); %Neutrophils 73.4 % (42.0-75.0); Hemoglobin 13.5 g/dL (14.0-18.0); Mean Corpuscular HGB CONC 34.5 g/dL (32.0-36.0); Mean Corpuscular Volume 89.9 fL (78.0-98.0); Mean Platelet Volume 7.5 fL (7.4-10.4); Platelet Count 232 thou/uL (130-400); RBC Distribution Width 13.5 % (11.5-14.5); Red Blood Cell (RBC) Count 4.36 mill/uL (4.70-6.10); White Blood Cell (WBC) Count 7.2 thou/uL (4.8-10.8)
[2020-06-03 17:46] LABS: ALT (SGPT) 34 U/L (8-55); AST (SGOT) 23 U/L (5-34); Albumin 3.8 g/dL (3.4-4.8); Alkaline Phosphatase 90 U/L (40-110); Anion Gap 14 mmol/L (10-20); BUN (Urea Nitrogen) 16 mg/dL (8.4-25.7); Bilirubin, Total 0.9 mg/dL (0.2-1.2); Calc. Creatinine Clearance 0 mL/min (70-130); Calcium 8.4 mg/dL (7.8-10.44); Carbon Dioxide 25 mmol/L (23-31); Chloride 104 mmol/L (98-107); Estimated GFR-MDRD 64; Globulin 2.7 g/dL (2.4-3.5); Glucose 136 mg/dL (83-110); Potassium 3.5 mmol/L (3.5-5.1); Protein, Total 6.5 g/dL (5.8-8.1); Sodium 139 mmol/L (136-145)
[2020-06-03] MEDS ORDERED: Fentanyl 100 MCG/2 ML VIAL ONE (19:32)
[2020-06-03] MEDS ORDERED: Midazolam HCl 5 mg/ml Vial ONE (19:32)
[2020-06-03 19:44] LABS: Digoxin Less than 0.15 ng/mL (0.8-2.0)
== END 2020-06-03 22:37 | disposition home or self-care (01) ==
LOC: ERS 16:54
DX: I48.91 Unspecified atrial fibrillation (principal); R53.1 Weakness; N40.0 Benign prostatic hyperplasia without lower urinary tract symptoms; E11.9 Type 2 diabetes mellitus without complications; Z79.899 Other long term (current) drug therapy; Z79.84 Long term (current) use of oral hypoglycemic drugs
CPT/HCPCS: 80053; 80162; 84484; 85025; 93005; 96365; 96366; 96375; 99292; J2250; J3010

== ENCOUNTER 2020-06-04 18:00 | Emergency (ER) | payer MEDICARE, BC ==
[2020-06-04 18:23] LABS: #Eosinphils 0.5 thou/uL (0.0-0.7); #Monocytes 0.5 thou/uL (0.11-0.59); %Basophils 0.1 % (0.0-1.0); %Eosinophils 7.8 % (0.0-10.0); %Lymphocytes 13.6 % (21.0-51.0); %Neutrophils 71.4 % (42.0-75.0); Hemoglobin 13.2 g/dL (14.0-18.0); Mean Corpuscular Hemoglobin 31.6 pg (27.0-31.0); Mean Corpuscular Volume 90.2 fL (78.0-98.0); Mean Platelet Volume 7.5 fL (7.4-10.4); Platelet Count 266 thou/uL (130-400); RBC Distribution Width 13.5 % (11.5-14.5); Red Blood Cell (RBC) Count 4.17 mill/uL (4.70-6.10)
[2020-06-04 18:43] LABS: ALT (SGPT) 37 U/L (8-55); AST (SGOT) 27 U/L (5-34); Alkaline Phosphatase 93 U/L (40-110); Anion Gap 13 mmol/L (10-20); BUN (Urea Nitrogen) 17 mg/dL (8.4-25.7); Bilirubin, Total 0.8 mg/dL (0.2-1.2); Calc. Creatinine Clearance 0 mL/min (70-130); Carbon Dioxide 26 mmol/L (23-31); Chloride 104 mmol/L (98-107); Estimated GFR-MDRD 67; Globulin 2.9 g/dL (2.4-3.5); Glucose 120 mg/dL (83-110); Potassium 3.9 mmol/L (3.5-5.1); Protein, Total 6.9 g/dL (5.8-8.1); Sodium 139 mmol/L (136-145)
[2020-06-04] MEDS ORDERED: Metoprolol Tartrate 5 MG/5 ML VIAL ONE (18:54)
[2020-06-04] MEDS ORDERED: Digoxin 0.5 MG/2 ML AMP ONE (18:54)
--- NOTE | 2020-06-10 10:32 | EKG ---
Test Reason : HIGH HR Blood Pressure : / mmHG Vent. Rate : 153 BPM Atrial Rate : 153 BPM P-R Int : 126 ms QRS Dur : 110 ms QT Int : 268 ms P-R-T Axes : 076 -28 144 degrees QTc Int : 427 ms Sinus tachycardia Incomplete right bundle branch block Abnormal ECG Confirmed by ANGELI WHITE ([id number]), development editor JOSE DILL ([id number]) on 06/10/2020 10:32:24 AM Referred By: Confirmed By:ANGELI WHITE
== END 2020-06-04 20:16 | disposition home or self-care (01) ==
LOC: ERS 18:00
DX: I48.91 Unspecified atrial fibrillation (principal); N40.0 Benign prostatic hyperplasia without lower urinary tract symptoms; E11.9 Type 2 diabetes mellitus without complications; Z79.84 Long term (current) use of oral hypoglycemic drugs; Z79.899 Other long term (current) drug therapy
CPT/HCPCS: 80053; 84484; 85025; 93005; 96374; 96375; J1160

== ENCOUNTER 2020-06-14 20:25 | Inpatient (IN) | payer MEDICARE, BC, OTHER ==
[2020-06-14] MEDS ORDERED: Diltiazem 125 MG/25 ML ONE (20:33)
[2020-06-14 20:48] LABS: #Eosinphils 0.7 thou/uL (0.0-0.7); #Lymphocytes 1.4 thou/uL (1.20-3.40); #Monocytes 0.4 thou/uL (0.11-0.59); #Neutrophils 5.6 thou/uL (1.40-6.50); %Basophils 0.2 % (0.0-1.0); %Eosinophils 8.9 % (0.0-10.0); %Monocytes 5.1 % (0.0-10.0); %Neutrophils 68.9 % (42.0-75.0); Hemoglobin 13.5 g/dL (14.0-18.0); Mean Corpuscular HGB CONC 33.7 g/dL (32.0-36.0); Mean Corpuscular Hemoglobin 30.2 pg (27.0-31.0); Mean Corpuscular Volume 89.6 fL (78.0-98.0); Mean Platelet Volume 7.2 fL (7.4-10.4); Platelet Count 322 thou/uL (130-400); RBC Distribution Width 13.7 % (11.5-14.5); Red Blood Cell (RBC) Count 4.48 mill/uL (4.70-6.10); White Blood Cell (WBC) Count 8.1 thou/uL (4.8-10.8)
--- NOTE | 2020-06-14 20:53 | RAD ---
Chest AP view INDICATION: Heart palpitations with history of atrial fibrillation COMPARISON: Prior exam dated May 30, 2020 FINDINGS: Lungs: The lungs are clear Cardiac silhouette: Stable mild cardiomegaly Pulmonary vasculature: Normal Pleural spaces: No pleural effusion or pneumothorax is demonstrated. Upper abdomen: No abnormality seen. Osseous structures: No acute osseous abnormality. Additional findings: None. IMPRESSION: Stable mild cardiomegaly. No acute abnormality demonstrated.
[2020-06-14 21:10] LABS: ALT (SGPT) 23 U/L (8-55); AST (SGOT) 14 U/L (5-34); Albumin 4.3 g/dL (3.4-4.8); Alkaline Phosphatase 103 U/L (40-110); Anion Gap 14 mmol/L (10-20); BUN (Urea Nitrogen) 18 mg/dL (8.4-25.7); Bilirubin, Total 0.5 mg/dL (0.2-1.2); Calc. Creatinine Clearance 0 mL/min (70-130); Carbon Dioxide 28 mmol/L (23-31); Chloride 100 mmol/L (98-107); Estimated GFR-MDRD 46; Globulin 3.1 g/dL (2.4-3.5); Glucose 157 mg/dL (83-110); Potassium 3.5 mmol/L (3.5-5.1); Protein, Total 7.4 g/dL (5.8-8.1); Sodium 138 mmol/L (136-145)
[2020-06-14] MEDS ORDERED: Acetaminophen 325 MG TAB PO PRN (21:39)
--- NOTE | 2020-06-14 22:31 | PDOC.EVN ---
Event Note - Event Note Event Note: [id number] HP dictated
[2020-06-14] MEDS ORDERED: Azithromycin 500 MG in Sodium Chloride 0.9% 250 ML 250 ML IVPB SCH (23:00)
[2020-06-15 00:30] LABS: Troponin I 0.022 ng/mL (< 0.028)
--- NOTE | 2020-06-15 00:53 | HP ---
CHIEF COMPLAINT: Palpitations. HISTORY OF PRESENT ILLNESS: Mr. Wheeler is an 84-year-old male with past medical history of atrial fibrillation/flutter, on Eliquis, diabetes, among others, presented to the emergency room with palpitations. checked his pulse, which was very high. In the emergency room, the patient was found to be in atrial flutter with 2:1 block. The patient was given IV diltiazem, followed by diltiazem drip. Currently rate is controlled, but remains in flutter. Denies nausea, vomiting, fever, or chills. Denies dizziness. The patient recently had a cardioversion. As per , the patient's metoprolol was recently changed at the [facility] from metoprolol to Multaq. Currently, the patient is being admitted to hospital for further management. PAST MEDICAL HISTORY: As mentioned above in history of present illness. PAST SURGICAL HISTORY: 1. Ablation for atrial fibrillation. 2. Cholecystectomy. 3. Right shoulder surgery. PAST SOCIAL HISTORY: Lives at home. No smoking history. Denies alcohol use. HOME MEDICATIONS: Please see home medication reconciliation form for updated medications. ALLERGIES: ALLERGIC TO ALPRAZOLAM, AMITRIPTYLINE, CARBIDOPA, FINASTERIDE, GABAPENTIN, LEVODOPA, NIACIN, SULFA. REVIEW OF SYSTEMS: Review of 14 systems negative except what is mentioned in history of present illness. PHYSICAL EXAMINATION: GENERAL: The patient is awake, alert, does not appear to be in acute distress. VITAL SIGNS: Blood pressure 114/62, pulse is 98, respiratory rate is 20, temperature 98.2, oxygen saturations 96% on room air. HEAD AND NECK: Normocephalic, atraumatic. NECK: Supple. CHEST: Fair bilateral air entry. HEART: Irregular. ABDOMEN: Soft, nontender. Bowel sounds present. NEUROLOGIC: Awake, alert, oriented, moving extremities. PSYCHIATRIC: Unable to assess. EXTREMITIES: No clubbing, no cyanosis. LABORATORY DATA: BNP 198. Chest x-ray, no acute finding. EKG showed atrial flutter with 2:1 block with T-wave and ST changes in the lateral leads. ASSESSMENT AND PLAN: 1. Atrial flutter/fibrillation with rapid ventricular response. 2. Diabetes mellitus, type 2. 3. Hyperlipidemia. 4. Restless legs syndrome. PLAN: 1. Admit. 2. Telemetry monitoring. 3. Continue with diltiazem drip. 4. Consult patient's cardiac field account manager for evaluation and further recommendations. 5. Reconcile home medications. 6. DVT prophylaxis. Continue home anticoagulants. 7. Expected length of stay at least 1 midnight, if patient is stable and cleared by Cardiology. Job ID: [id number]
[2020-06-15 01:12] VITALS: BMI 25.7
[2020-06-15] MEDS ORDERED: Diltiazem HCl 125 MG, Admixture Fee 1 EACH in Sodium Chloride 0.9% 100 ML IVPB SCH (01:45)
[2020-06-15] MEDS ORDERED: Ondansetron ODT 4 MG TAB SL PRN (01:45)
[2020-06-15] MEDS ORDERED: Sodium Chloride 0.9% 1,000 ML IV SCH (01:45)
[2020-06-15] MEDS ORDERED: Ondansetron PF 4 MG/2 ML Vial IVP PRN (01:45)
[2020-06-15] MEDS ORDERED: Acetaminophen 325 MG TAB PO PRN (01:45)
[2020-06-15 04:18] LABS: #Eosinphils 0.7 thou/uL (0.0-0.7); #Lymphocytes 1.2 thou/uL (1.20-3.40); #Monocytes 0.4 thou/uL (0.11-0.59); #Neutrophils 4.5 thou/uL (1.40-6.50); %Basophils 0.3 % (0.0-1.0); %Eosinophils 9.7 % (0.0-10.0); %Lymphocytes 17.2 % (21.0-51.0); %Monocytes 6.4 % (0.0-10.0); %Neutrophils 66.4 % (42.0-75.0); Hemoglobin 11.7 g/dL (14.0-18.0); Mean Corpuscular HGB CONC 34.1 g/dL (32.0-36.0); Mean Corpuscular Hemoglobin 30.1 pg (27.0-31.0); Mean Corpuscular Volume 88.3 fL (78.0-98.0); Mean Platelet Volume 7.5 fL (7.4-10.4); Platelet Count 267 thou/uL (130-400); RBC Distribution Width 13.7 % (11.5-14.5); White Blood Cell (WBC) Count 6.8 thou/uL (4.8-10.8)
[2020-06-15 04:38] LABS: Anion Gap 11 mmol/L (10-20); BUN (Urea Nitrogen) 18 mg/dL (8.4-25.7); Calc. Creatinine Clearance 55 mL/min (70-130); Calcium 8.2 mg/dL (7.8-10.44); Carbon Dioxide 24 mmol/L (23-31); Chloride 106 mmol/L (98-107); Estimated GFR-MDRD 59; Glucose 132 mg/dL (83-110); Potassium 3.7 mmol/L (3.5-5.1); Sodium 137 mmol/L (136-145)
[2020-06-15] MEDS ORDERED: Non-Formulary Item 1 EACH (Metformin Hcl [Metformin Hcl Er] 750 MG Tab.Er.24h) PO SCH (09:00)
[2020-06-15] MEDS ORDERED: FLU VACC QS2020-21(65YR UP)/PF 240 MCG/0.7 ML SYRINGE IM ONE (09:00)
[2020-06-15] MEDS ORDERED: UBIDECARENONE PO SCH (09:00)
[2020-06-15] MEDS ORDERED: Apixaban 5 MG TAB PO SCH (09:00)
[2020-06-15] MEDS ORDERED: VIT E ACET PO SCH (09:00)
[2020-06-15] MEDS ORDERED: [UNRECOGNIZED DRUG - OTHER] PO SCH (09:00)
[2020-06-15] MEDS: Rosuvastatin 5 MG TAB PO SCH (09:40)
[2020-06-15] MEDS: Ubidecarenone 50 MG CAP PO SCH (09:40)
[2020-06-15] MEDS: metFORMIN 500 MG TAB PO SCH (09:40)
--- NOTE | 2020-06-15 12:39 | CON ---
DATE OF CONSULTATION: 06/15/2020 HISTORY OF PRESENT ILLNESS: I am seeing Mr. Wheeler at our [facility] telemetry floor for electrophysiology consultation. His problems are: 1. Recurrent atrial arrhythmias. a. Atrial fibrillation and pulmonary venous isolation on 08/12/2012. b. Recurrent atrial fibrillation episodes/flutter with one AV conduction was noted on 05/31/2020, requiring initiation of Multaq and cardioversion. c. Bradycardia required decrease of his beta-harika therapy and now has recurrent atrial flutter with rapid ventricular rates. 2. History of preserved LVEF by echo 01/26/2018 with moderate MR, mild TR, biatrial enlargement. 3. History of hypertension, diabetes, hypercholesteremia, and prior smoking. 4. Age, hypertension, diabetes with CHADS-VASc score of 4, on Eliquis therapy. 5. Alzheimer, parkinsonism. ALLERGIES: ALPRAZOLAM, AMITRIPTYLINE, CARBIDOPA, FINASTERIDE, GABAPENTIN, NIACIN, PREGABALIN, AND SULFA. MEDICATIONS: At home included: 1. Multaq 400 mg twice a day. 2. Eliquis. 3. Celecoxib. 4. Furosamide. 5. Coenzyme Q10. 6. Rosuvastatin. 7. Metformin. 8. Pramipexole. SUBJECTIVE: Mr. Wheeler had recurrent atrial arrhythmias and currently admitted with repeated atrial flutter occurrence and atrial flutter appears to be atypical and with rapid rates 2:1 AV conduction. He is somewhat of a limited historian, did not appear to be markedly symptomatic, but his detected with elevated heart rate. He was given IV diltiazem, which controlled the heart rate eventually spontaneously converted back to sinus rhythm. Currently, he is feeling well. Denies angina or CHF like symptoms. No stroke-like symptoms. No bleeding issues. REVIEW OF SYSTEMS: Rest of 12-point review of systems otherwise unremarkable. PAST MEDICAL HISTORY: As above. PAST SURGICAL HISTORY: Significant for ablation in 2011 for atrial fibrillation, cholecystectomy, and right shoulder surgery. SOCIAL HISTORY: He is , lives at home. Denies EtOH use. He is a former smoker. FAMILY HISTORY: Not contributory. OBJECTIVE DATA: VITAL SIGNS: Blood pressure 123/58, heart rate 66, respiratory rate 16, temperature 97.7 degrees Fahrenheit. GENERAL: Alert and oriented elderly man, in no apparent distress. NECK: Supple. Jugular veins not distended. CHEST: Coarse without crackles. HEART: Sounds are regular to rate and rhythm. No murmur or gallop. ABDOMEN: Benign. Bowel sounds positive. EXTREMITIES: Lower extremity without edema, clubbing, or cyanosis. Pulses are adequate. NEUROLOGIC: Nonfocal. MUSCULOSKELETAL: Without joint swelling or deformity. SKIN: Without rash. DATABASE: EKG has been reviewed. Initial EKG reveals atrial flutter, which appears to be atypical with 2:1 AV conduction. Subsequent EKG reveals atrial flutter with more controlled ventricular rate at 90 beats per minute morphology for being isthmus dependent. At the time of the test this morning reveals sinus rhythm. White count 6.8, hemoglobin 11.7, platelet count 267. Sodium 137, potassium 3.7, BUN is 28, creatinine 1.17. Troponin I of 0.022. BNP is 198. ASSESSMENT AND PLAN: Mr. Wheeler is a pleasant 84-year-old gentleman with prior history of recurrent atrial arrhythmias, prior pulmonary venous isolation procedure in 2011, who has done well but recently had an atypical atrial flutter. He was started on Multaq and cardioverted in the beginning of this month. Since then, his medication regimen had to be revised in our office visit. Due to bradycardia, the metoprolol was stopped. Subsequently, he had recurrent atrial flutter. 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 At this point, I would attempt a consideration of pacemaker implantation and resuming Multaq and add additional AV uriel blocking agents. Beta blockers versus calcium channel blockers would be considered. Continue oral anticoagulation. Resume after surgery. Ordered for pacemaker implant. Previously discussed option of redo ablation. With his advanced age and progressive dementia, the patient's declined. Thank you again for the consult. Job ID: [id number]
[2020-06-15 13:19] LABS: SARS-CoV-2 MS2 Positive; SARS-CoV-2 N Gene Negative; SARS-CoV-2 S Gene Negative; SARS-CoV-2 by NAA Not Detected (NotDetected); SARS-CoV-2 orf1ab Negative
--- NOTE | 2020-06-15 14:12 | PDOC.HOSPP ---
- Subjective Encounter Date: 06/15/20 Encounter Time: 10:00 Subjective: no c/o chest pain or palp is sitting on bed, has no complaints, wants to eat - Objective Vital Signs & Weight: Vital Signs (12 hours) Temp Pulse Resp BP BP Pulse Ox 06/15/20 11:10 98.6 F 66 14 127/62 97 06/15/20 07:20 97.7 F 66 16 123/58 L 97 06/15/20 04:34 98.0 F 79 14 136/78 96 Weight Weight 190 lb I&O: 06/14/20 06/15/20 06/16/20 06:59 06:59 06:59 Output Total 400 Balance -400 Result Diagrams: 06/15/20 03:59 06/15/20 03:59 Hospitalist ROS - Medication Medications: Active Medications Generic Name Dose Route Start Last Admin Trade Name Freq PRN Reason Stop Dose Admin Apixaban 5 mg 06/15/20 09:00 06/15/20 09:40 Apixaban 5 Mg Tab PO 5 mg BID EMILIE Administration Coenzyme Q10 100 mg 06/15/20 09:00 06/15/20 09:40 Ubidecarenone 50 Mg Cap PO 100 mg DAILY EMILIE Administration Metformin HCl 750 mg 06/15/20 09:00 06/15/20 09:40 Metformin 500 Mg Tab PO 750 mg DAILY EMILIE Administration Rosuvastatin Calcium 5 mg 06/15/20 09:00 06/15/20 09:40 Rosuvastatin 5 Mg Tab PO 5 mg DAILY EMILIE Administration Sodium Chloride 10 ml 06/15/20 09:00 06/15/20 09:46 Flush - Normal Saline 10 Ml Syringe IVF 10 ml Q12HR EMILIE Administration - Exam General Appearance: awake alert Eye: PERRL, anicteric sclera ENT: no oropharyngeal lesions, moist mucosa Neck: supple, no JVD Heart: RRR, no murmur Respiratory: no wheezes, no rales Gastrointestinal: soft, non-tender, non-distended, normal bowel sounds Extremities: no cyanosis, no edema Neurological: cranial nerve grossly intact, no focal deficits Hosp A/P (1) Atrial flutter Code(s): I48.92 - UNSPECIFIED ATRIAL FLUTTER Status: Resolved Qualifiers: Atrial flutter type: unspecified Qualified Code(s): I48.92 - Unspecified atrial flutter (2) HTN (hypertension) Code(s): I10 - ESSENTIAL (PRIMARY) HYPERTENSION Status: Chronic Qualifiers: Hypertension type: essential hypertension (3) Paroxysmal A-fib Code(s): I48.0 - PAROXYSMAL ATRIAL FIBRILLATION Status: Chronic (4) NE (obstructive sleep apnea) Code(s): G47.33 - OBSTRUCTIVE SLEEP APNEA (ADULT) (PEDIATRIC) Status: Chronic (5) Dementia Code(s): F03.90 - UNSPECIFIED DEMENTIA WITHOUT BEHAVIORAL DISTURBANCE Status: Chronic Qualifiers: Dementia type: unspecified type Dementia behavioral disturbance: without behavioral disturbance Qualified Code(s): F03.90 - Unspecified dementia without behavioral disturbance (6) BPH (benign prostatic hyperplasia) Code(s): N40.0 - BENIGN PROSTATIC HYPERPLASIA WITHOUT LOWER URINRY TRACT SYMP Status: Chronic (7) Dyslipidemia Code(s): E78.5 - HYPERLIPIDEMIA, UNSPECIFIED Status: Chronic - Plan is on oral cardizem, multaq, for pcm insertion in am for 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
[2020-06-15] MEDS: Dronedarone HCl 400 MG TAB PO SCH (15:21)
[2020-06-15] MEDS ORDERED: Benzonatate 100 MG CAP PO PRN (20:54)
[2020-06-15] MEDS ORDERED: PRAMIPEXOLE DI HCL 1.5 MG PO SCH (21:00)
[2020-06-15] MEDS ORDERED: Pramipexole Di-HCl 1 MG TAB PO SCH (21:00)
[2020-06-16] MEDS ORDERED: Fentanyl 100 MCG/2 ML VIAL ONE (09:45)
[2020-06-16] MEDS ORDERED: Ketamine 50 MG/ML (10ML VIAL) ONE (09:45)
[2020-06-16] MEDS ORDERED: Propofol 1,000 MG/100 ML VIAL IV ONE (09:46)
[2020-06-16] MEDS ORDERED: Lidocaine 1% (PF) 30 ML VIAL ONE (10:03)
[2020-06-16] MEDS ORDERED: CEFAZOLIN 1 GM VIAL ONE (10:03)
[2020-06-16] MEDS ORDERED: Gentamicin 80 MG/2 ML VIAL ONE (10:03)
[2020-06-16] MEDS ORDERED: Lidocaine 2% Jelly 5 ML TUBE ONE (10:25)
[2020-06-16] MEDS ORDERED: Midazolam HCl 2 mg/2 ml Vial ONE (10:27)
[2020-06-16] MEDS ORDERED: Ondansetron HCl/PF 4 MG/2 ML Vial IVP PRN (11:59)
[2020-06-16] MEDS ORDERED: Cephalexin 250 MG CAP PO SCH ×2 (12:00→18:00)
[2020-06-16] MEDS ORDERED: Acetaminophen/Codeine 30-300mg Tablet PO PRN ×2 (12:30)
--- NOTE | 2020-06-16 12:33 | RAD ---
Exam: Chest one view HISTORY:Status post pacemaker placement Comparison: 05/30/2020 FINDINGS: Cardiac silhouette:Upper normal cardiac silhouette. Aorta: Unremarkable Pulmonary vessels: Normal Costophrenic angles: Clear LUNGS: Chronic changes, without mass or consolidation Pacing device: Interval placement of a left-sided transvenous pacemaker with lead positioned over the region of the right atrium and right ventricle. Pneumothorax: None Osseous abnormalities: None IMPRESSION: 1. Interval placement of left-sided transvenous pacemaker with lead positioned over the right atrium right ventricle. 2. Chronic lung parenchymal changes. 3. No pneumothorax.
[2020-06-16] MEDS: Ubidecarenone 50 MG CAP PO SCH (13:02)
[2020-06-16] MEDS: Rosuvastatin 5 MG TAB PO SCH (13:02)
[2020-06-16] MEDS: Dronedarone HCl 400 MG TAB PO SCH (13:02)
[2020-06-16] MEDS: metFORMIN 500 MG TAB PO SCH (13:34)
[2020-06-16] MEDS ORDERED: Iopamidol 370 76% 50 ML VIAL FS ONE (15:20)
[2020-06-16 16:59] VITALS: BP 138/73; TEMP 97.7
--- NOTE | 2020-06-19 08:45 | DIS ---
DATE OF ADMISSION: 06/15/2020 DATE OF DISCHARGE: 06/16/2020 DISCHARGE DISPOSITION: Home. PRIMARY DISCHARGE DIAGNOSES: Recurrent atrial flutter and fibrillation, status post pacemaker for tachy-andie syndrome, hypertension, obstructive sleep apnea, benign prostatic hyperplasia, dyslipidemia. PROCEDURES DONE DURING HOSPITALIZATION: The patient has had dual-chamber pacemaker placed by Dr. Fisher on 06/16/2020. H and H 11 and 34, platelet count 267. BUN 18, creatinine 1.1. BNP 198. Troponin x2 negative. COVID-19 PCR was not detected on 06/15/2020. DISCHARGE MEDICATIONS: 1. Keflex 2 tabs, 500 mg 4 times daily for seven days. 2. Multaq 400 mg twice daily. 3. Eliquis 5 mg p.o. twice daily to start from tomorrow evening that is 06/17/2020. 4. Cardizem CD 180 mg p.o. daily. 5. Pramipexole 1.5 mg p.o. at bedtime. 6. Metformin extended release 750 mg p.o. daily. 7. Lasix 20 mg daily. 8. Crestor 5 mg daily. 9. CoQ10 100 mg p.o. daily. 10. Celecoxib 100 mg p.o. daily. ALLERGIES: ALLERGIC TO ALPRAZOLAM, AMITRIPTYLINE, CARBIDOPA, FINASTERIDE, GABAPENTIN, LEVODOPA, NIACIN, SULFA. INPATIENT CONSULT: Dr. Fisher for Electrophysiology. DISCHARGE PLAN: The patient to follow up with Dr. Fisher in 2 weeks. He needs to follow up with Dr. Hagen in 4 weeks, and primary care physician, Dr. Von Hicks in 1 week. BRIEF COURSE DURING HOSPITALIZATION: The patient initially was brought to the emergency room on 06/15/2020 with complaints of palpitations. The patient was found to be in atrial flutter with 2:1 block. He was placed on Cardizem drip briefly and the patient converted to sinus rhythm. He has had bradycardic episodes on prior hospitalization with beta-harika and optimization of medications for atrial fibrillation. In view of this history of tachy-andie syndrome, the patient has had consultation with Dr. Fisher for Electrophysiology. The patient has tolerated dual-chamber pacemaker placement today by Dr. Fisher. The patient was placed on Cardizem CD 180 mg daily and needs to continue Multaq twice daily. He needs to follow up with Dr. Fisher in 2 weeks. He has otherwise remained hemodynamically stable and will be shortly discharged home. Dr. Fisher has cleared him for discharge. Please note, I have seen and examined the patient on the day of discharge. Job ID: [id number]
== END 2020-06-16 17:15 | disposition home health service (06) | DRG 244 ==
LOC: ERS 20:25 → 2NO 21:47 → OBSVTOIN 06-15 12:57
PROVIDERS: ADMIT Internal Medicine; ATTEND Internal Medicine
PROC: 0JH606Z Insertion of Pacemaker, Dual Chamber into Chest Subcutaneous Tissue and Fascia, Open Approach (ICD-10-PCS; principal; 2020-06-16)
PROC: 02H63JZ Insertion of Pacemaker Lead into Right Atrium, Percutaneous Approach (ICD-10-PCS; 2020-06-16)
PROC: 02HK3JZ Insertion of Pacemaker Lead into Right Ventricle, Percutaneous Approach (ICD-10-PCS; 2020-06-16)
DX: I48.92 Unspecified atrial flutter (principal); E11.9 Type 2 diabetes mellitus without complications; R00.1 Bradycardia, unspecified; G25.81 Restless legs syndrome; I10 Essential (primary) hypertension; G20 Parkinson's disease; I49.5 Sick sinus syndrome; G30.9 Alzheimer's disease, unspecified; E78.00 Pure hypercholesterolemia, unspecified; F02.80 Dementia in other diseases classified elsewhere, unspecified severity, without behavioral disturbance, psychotic disturbance, mood disturbance, and anxiety; I48.0 Paroxysmal atrial fibrillation; G47.33 Obstructive sleep apnea (adult) (pediatric); N40.0 Benign prostatic hyperplasia without lower urinary tract symptoms; Z79.01 Long term (current) use of anticoagulants; Z90.49 Acquired absence of other specified parts of digestive tract; Z88.2 Allergy status to sulfonamides; Z88.1 Allergy status to other antibiotic agents; Z88.8 Allergy status to other drugs, medicaments and biological substances; Z20.828 Contact with and (suspected) exposure to other viral communicable diseases
CPT/HCPCS: 33208; 36005; 36415; 71045; 75820; 76942; 80048; 80053; 83735; 83880; 84484; 85025; 87635; 93005; 94760; J0690; J1580; J2001; J2250; J2704; J3010; Q9967; U0003